=== PATIENT | female | born 1945 | race Caucasian/White ===

== ENCOUNTER 2020-02-12 23:46 | Emergency (ER) | payer BC, MEDICARE ==
[2020-02-13] MEDS ORDERED: Lactated Ringers 1,000 ML IV ONE (00:36)
[2020-02-13] MEDS ORDERED: Prochlorperazine 10 MG/2 ML SDV IVPUSH ONE (00:37)
[2020-02-13] MEDS ORDERED: HYDROmorphone 0.5 MG/0.5 ML Syringe IVPUSH ONE (00:37)
--- NOTE | 2020-02-13 00:43 | EDM.PDOC ---
ED HPI GENERAL MEDICAL PROBLEM - General Chief Complaint: Gastrointestinal Problem Stated Complaint: BACK PAIN/VOMITING/CHEST PAIN Time Seen by Provider: 02/13/20 00:25 Source of Information: Reports: Patient, Old Records, RN History Limitations: Reports: No Limitations - History of Present Illness INITIAL COMMENTS - FREE TEXT/NARRATIVE: 74 yo female with an ileostomy presents with R flank pain since about 4 pm on 02/10 that has progressed. No fever. Questionable hematuria and mild dysuria. Nausea and vomiting onset tonight. Pain has been constant since its onset. Does have a pHx of UTI's. Emesis on arrival looked a little dark per Betsey and nursing. Ileostomy functioning properly. Denies abdominal pain or bloating. Has had Bactrim as an adult without issue. Onset: Gradual Onset Date: 02/11/20 Onset Time: 16:00 Duration: Day(s): (1+), Getting Worse Location: Reports: Back (R flank) Quality: Reports: Ache Severity: Moderate Improves with: Reports: None Worsens with: Reports: Other (time) Context: Reports: Other (See HPI) Associated Symptoms: Reports: Nausea/Vomiting. 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) Right Flank Pain Score (Numeric/FACES): 8 - Related Data Allergies Allergy/AdvReac Type Severity Reaction Status Date / Time cephalexin monohydrate Allergy Hives Verified 02/13/20 00:07 [From Keflex] Sulfa (Sulfonamide Allergy Rash Verified 02/13/20 00:07 Antibiotics) Home Meds: Home Meds Citalopram Hydrobromide [Citalopram HBr] 10 mg PO DAILY 03/17/16 [History] Omeprazole 40 mg PO BEDTIME 03/17/16 [History] Montelukast [Singulair] 10 mg PO DAILY 02/13/20 [History] Rosuvastatin [Crestor] 5 mg PO DAILY 02/13/20 [History] Past Medical History HEENT History: Reports: Impaired Vision Cardiovascular History: Reports: High Cholesterol, Hypertension Respiratory History: Reports: Bronchitis, Recurrent Gastrointestinal History: Reports: Cholelithiasis, Diverticulosis, Inflammatory Bowel Disease, Irritable Bowel Syndrome, Other (See Below) Other Gastrointestinal History: crohn 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: Musculoskeletal History: Reports: Fracture, Fibromyalgia Other Musculoskeletal History: hand fx Neurological History: Reports: TIA Psychiatric History: Reports: Anxiety Dermatologic History: Reports: Eczema, Psoriasis - Infectious Disease History Infectious Disease History: Reports: Chicken Pox, Measles - Past Surgical History HEENT Surgical History: Reports: Cataract Surgery GI Surgical History: Reports: Cholecystectomy, Colonoscopy, Other (See Below) Other GI Surgeries/Procedures: total colectomy with illeostomy Female Surgical History: Reports: Hysterectomy, Salpingo-Oophorectomy Social & Family History - Tobacco Use Tobacco Use Status *Q: Never Tobacco User Second Hand Smoke Exposure: No - Caffeine Use Caffeine Use: Reports: Coffee, Tea - Alcohol Use Days Per Week of Alcohol Use: 0 - Recreational Drug Use Recreational Drug Use: No ED ROS GENERAL - Review of Systems Review Of Systems: See Below Constitutional: Reports: No Symptoms HEENT: Reports: No Symptoms Respiratory: Reports: No Symptoms Cardiovascular: Reports: No Symptoms Endocrine: Reports: No Symptoms GI/Abdominal: Reports: Hematemesis (possibly, ? coffee ground-like), Nausea, Vomiting. Denies: Abdominal Pain, Black Stool, Bloody Stool, Constipation, Diarrhea, Distension, Melena : Reports: Dysuria (minimal), Flank Pain (right), Hematuria (possibly once?). Denies: Frequency, Incontinence, Urgency, Urinary Retention Musculoskeletal: Reports: No Symptoms Skin: Reports: No Symptoms Neurological: Reports: No Symptoms ED EXAM, GI/ABD - Physical Exam Exam: See Below Exam Limited By: No Limitations General Appearance: Alert, WD/WN, No Apparent Distress Eyes: Bilateral: Normal Appearance Ears: Normal External Exam, Normal Canal, Hearing Grossly Normal, Normal TMs Nose: Normal Inspection, No Blood Throat/Mouth: Normal Inspection, Normal Lips, Normal Oropharynx, Normal Voice, No Airway Compromise Head: Atraumatic, Normocephalic Neck: Normal Inspection Respiratory/Chest: No Respiratory Distress, Lungs Clear, Normal Breath Sounds, No Accessory Muscle Use Cardiovascular: Regular Rate, Rhythm, No Edema GI/Abdominal Exam: Normal Bowel Sounds, Soft, Non-Tender, No Distention, Other (ileostomy bag L side of abdomen) Back Exam: Normal Inspection, CVA Tenderness (R) (mild). No: CVA Tenderness (L) Extremities: Normal Inspection, Normal Range of Motion, Non-Tender, No Pedal Edema Neurological: Alert, Oriented, CN II-XII Intact, Normal Cognition, No Motor/Sensory Deficits Psychiatric: Normal Affect, Normal Mood Skin Exam: Warm, Dry, Intact, Normal Color, No Rash Course - Vital Signs Last Recorded V/S: Last Vital Signs Temp 37.1 C 02/13/20 00:19 Pulse 61 02/13/20 00:19 Resp 16 02/13/20 00:19 BP 168/63 H 02/13/20 00:19 Pulse Ox 95 02/13/20 00:19 - Orders/Labs/Meds Orders: Active Orders 24 hr Category Date Time Status Gastric Occult/pH Collection D [RC] ASDIRECTED Care 02/13/20 00:40 Active CULTURE URINE [RM] Stat Lab 02/13/20 00:30 Received Labs: Laboratory Tests 02/13/20 02/13/20 02/13/20 Range/Units 00:09 00:46 00:46 WBC 14.3 H (4.5-11.0) K/uL RBC 4.27 (3.30-5.50) M/uL Hgb 13.4 D (12.0-15.0) g/dL Hct 41.4 (36.0-48.0) % MCV 97 (80-98) fL MCH 31 (27-31) pg MCHC 32 (32-36) % Plt Count 309 (150-400) K/uL Sodium 138 L (140-148) mmol/L Potassium 4.1 (3.6-5.2) mmol/L Chloride 103 (100-108) mmol/L Carbon Dioxide 24 (21-32) mmol/L Anion Gap 15.1 H (5.0-14.0) mmol/L BUN 25 H (7-18) mg/dL Creatinine 1.1 H (0.6-1.0) mg/dL Est Cr Clr Drug Dosing TNP Estimated GFR (MDRD) 48 L (>60) Glucose 178 H (74-106) mg/dL Calcium 8.9 (8.5-10.1) mg/dL C-Reactive Protein (0.0-0.3) mg/dL Urine Color Yellow (YELLOW) Urine Appearance Clear (CLEAR) Urine pH 5.5 (5.0-8.0) Ur Specific [place] >= 1.030 (1.008-1.030) Urine Protein Negative (NEGATIVE) mg/dL Urine Glucose (UA) Negative (NEGATIVE) mg/dL Urine Ketones Negative (NEGATIVE) mg/dL Urine Occult Blood Trace-lysed H (NEGATIVE) Urine Nitrite Negative (NEGATIVE) Urine Bilirubin Negative (NEGATIVE) Urine Urobilinogen 0.2 (0.2-1.0) EU/dL Ur Leukocyte Esterase Trace H (NEGATIVE) Urine RBC 0-5 (0-5) Urine WBC 10-20 H (0-5) Ur Epithelial Cells Few Amorphous Sediment Not seen Urine Bacteria Moderate Urine Mucus Not seen 02/13/20 Range/Units 00:46 WBC (4.5-11.0) K/uL RBC (3.30-5.50) M/uL Hgb (12.0-15.0) g/dL Hct (36.0-48.0) % MCV (80-98) fL MCH (27-31) pg MCHC (32-36) % Plt Count (150-400) K/uL Sodium (140-148) mmol/L Potassium (3.6-5.2) mmol/L Chloride (100-108) mmol/L Carbon Dioxide (21-32) mmol/L Anion Gap (5.0-14.0) mmol/L BUN (7-18) mg/dL Creatinine (0.6-1.0) mg/dL Est Cr Clr Drug Dosing Estimated GFR (MDRD) (>60) Glucose (74-106) mg/dL Calcium (8.5-10.1) mg/dL C-Reactive Protein 0.01 (0.0-0.3) mg/dL Urine Color (YELLOW) Urine Appearance (CLEAR) Urine pH (5.0-8.0) Ur Specific [place] (1.008-1.030) Urine Protein (NEGATIVE) mg/dL Urine Glucose (UA) (NEGATIVE) mg/dL Urine Ketones (NEGATIVE) mg/dL Urine Occult Blood (NEGATIVE) Urine Nitrite (NEGATIVE) Urine Bilirubin (NEGATIVE) Urine Urobilinogen (0.2-1.0) EU/dL Ur Leukocyte Esterase (NEGATIVE) Urine RBC (0-5) Urine WBC (0-5) Ur Epithelial Cells Amorphous Sediment Urine Bacteria Urine Mucus Meds: Medications Discontinued Medications Generic Name Dose Route Start Last Admin Trade Name Freq PRN Reason Stop Dose Admin Al Hydroxide/Mg Hydroxide 30 ml 02/13/20 01:32 02/13/20 01:40 Mag-Al Plus PO 02/13/20 01:33 30 ml ONETIME ONE Administration Famotidine 40 mg 02/13/20 01:31 02/13/20 01:40 Pepcid PO 02/13/20 01:32 40 mg ONETIME ONE Administration Hydromorphone HCl 0.5 mg 02/13/20 00:37 02/13/20 00:54 Dilaudid IVPUSH 02/13/20 00:38 0.5 mg ONETIME ONE Administration Lactated Ringer's 1,000 mls @ 1,000 mls/hr 02/13/20 00:36 02/13/20 00:49 Ringers, Lactated IV 02/13/20 01:35 1,000 mls/hr BOLUS ONE Administration Prochlorperazine Edisylate 5 mg 02/13/20 00:37 02/13/20 00:51 Compazine IVPUSH 02/13/20 00:38 5 mg ONETIME ONE Administration Trimethoprim/Sulfamethoxazole 1 tab 02/13/20 01:15 02/13/20 01:22 Septra Ds PO 02/13/20 01:16 1 tab ONETIME ONE Administration - Re-Assessments/Exams Free Text/Narrative Re-Assessment/Exam: 02/13/20 01:51 Feeling better after our interventions and wants to try it at home. Departure - Departure Time of Disposition: 02:00 Disposition: Home, Self-Care 01 Condition: Fair Clinical Impression: Mild dehydration UTI (urinary tract infection) Qualifiers: Urinary tract infection type: site unspecified Hematuria presence: without hematuria Qualified Code(s): N39.0 - Urinary tract infection, site not specified Gastritis Qualifiers: Gastritis type: unspecified gastritis Chronicity: acute Gastritis bleeding: with bleeding Qualified Code(s): K29.01 - Acute gastritis with bleeding Nausea and vomiting Qualifiers: Vomiting type: unspecified Vomiting Intractability: non-intractable Qualified Code(s): R11.2 - Nausea with vomiting, unspecified - Discharge Information *PRESCRIPTION DRUG MONITORING PROGRAM REVIEWED*: Not Applicable *COPY OF PRESCRIPTION DRUG MONITORING REPORT IN PATIENT KADEN: Not Applicable Instructions: Gastritis, Adult, [id number], Urinary Tract Infection, Adult Referrals: PCP,None [Primary Care Provider] - Forms: ED Department Discharge Additional Instructions: Take Bactrim DS every 12 hrs. Drink ample fluids. Take [place] for pain relief. There are no nausea meds in [facility] that you can safely take, but I am sending you home with an Rx for Compazine that you can fill at a pharmacy in the morning if you need to. Recheck in the clinic on Friday. Take Maalox 30 ml after meals and at bedtime for your stomach. Your urine culture report should be available for your doctor by Friday. Return here if worse before Friday. Sepsis Event Note (ED) - Evaluation Sepsis Screening Result: No Definite Risk - Focused Exam Vital Signs: Vital Signs Temp Pulse Resp BP Pulse Ox 02/13/20 00:19 37.1 C 61 16 168/63 H 95 - My Orders Last 24 Hours: My Active Orders 02/13/20 00:30 CULTURE URINE [RM] Stat 02/13/20 00:40 Gastric Occult/pH Collection D [RC] ASDIRECTED - Assessment/Plan Last 24 Hours: My Active Orders 02/13/20 00:30 CULTURE URINE [RM] Stat 02/13/20 00:40 Gastric Occult/pH Collection D [RC] ASDIRECTED
[2020-02-13] MEDS ORDERED: Sulfamethoxazole/Trimethoprim 800-160 MG Tab PO ONE (01:15)
[2020-02-13] MEDS ORDERED: Famotidine 20 MG Tab PO ONE (01:31)
[2020-02-13] MEDS ORDERED: Aluminum Hydroxide/Magnesium Hydroxide/Simethicone Susp 30 ML Cup PO ONE (01:32)
[2020-02-13 02:19] VITALS: BP 165/76; PULSE 77
== END 2020-02-13 02:18 | disposition home or self-care (01) ==
LOC: JP.ED 23:46
DX: K29.01 Acute gastritis with bleeding (principal); N39.0 Urinary tract infection, site not specified; E86.0 Dehydration; I10 Essential (primary) hypertension; E78.00 Pure hypercholesterolemia, unspecified; F41.9 Anxiety disorder, unspecified; Z90.49 Acquired absence of other specified parts of digestive tract; Z90.710 Acquired absence of both cervix and uterus; Z88.1 Allergy status to other antibiotic agents; Z88.2 Allergy status to sulfonamides; Z79.899 Other long term (current) drug therapy
CPT/HCPCS: 36415; 80048; 81001; 82271; 85027; 86140; 87086; 96374; 96375; 99284; A9270; J0780; J1170; J7120

== ENCOUNTER 2023-12-07 16:48 | Emergency (ER) | payer MEDICARE ==
[2023-12-07] MEDS ORDERED: Sodium Chloride 0.9% 1,000 ML IV ONE (18:11)
[2023-12-07] MEDS ORDERED: Sodium Chloride 0.9% 10 ML Syringe FLUSH PRN (18:11)
[2023-12-07 18:17] VITALS: BP 120/56; PULSE 68
[2023-12-07 18:23] LABS: BASOPHILS ABSOLUTE AUTO 0.05 K/uL (0.00-0.10); BASOPHILS PERCENT AUTO 0.6 % (0.1-1.3); EOSINOPHILS ABSOLUTE AUTO 0.18 K/uL (0.00-0.40); EOSINOPHILS PERCENT AUTO 2.3 % (0.0-5.4); HEMATOCRIT 34.8 % (34.3-46.0); HEMOGLOBIN 12.2 g/dL (11.2-15.5); IMMATURE GRAN ABSOLUTE AUTO 0.03 K/uL (0.00-0.23); IMMATURE GRAN PERCENT AUTO 0.4 % (0.0-0.7); LYMPHOCYTES ABSOLUTE AUTO 1.08 K/uL (0.8-3.3); LYMPHOCYTES PERCENT AUTO 13.6 % (11.4-47.7); MEAN CORPUSCULAR HGB CONC 35.1 g/dL (31.6-35.5); MEAN CORPUSCULAR VOLUME 94.1 fL (81.4-99.0); MONOCYTES ABSOLUTE AUTO 0.81 K/uL (0.20-0.90); MONOCYTES PERCENT AUTO 10.2 % (3.3-12.6); NEUTROPHILS ABSOLUTE AUTO 5.81 K/uL (1.0-7.6); NEUTROPHILS PERCENT AUTO 72.9 % (40.0-78.1); PLATELET COUNT,PLT 264 K/uL (130-375)
[2023-12-07 18:47] LABS: ANION GAP 9.3 mmol/L (5.0-14.0); CALCIUM 8.6 mg/dL (8.5-10.1); CREATININE 1.4 mg/dL (0.6-1.0); EST CRCL DRUG DOSING (CG) 25.35 mL/min; POTASSIUM,K 3.6 mmol/L (3.6-5.2)
== END 2023-12-07 19:00 | disposition home or self-care (01) ==
LOC: JP.ED 16:48
DX: E86.0 Dehydration (principal); I10 Essential (primary) hypertension; Z90.49 Acquired absence of other specified parts of digestive tract; Z90.710 Acquired absence of both cervix and uterus; Z79.899 Other long term (current) drug therapy; Z88.1 Allergy status to other antibiotic agents; Z88.2 Allergy status to sulfonamides
CPT/HCPCS: 36415; 80048; 84484; 85025; 93005; 99284